=== PATIENT | male | born 1950 | race Caucasian/White ===

== ENCOUNTER 2017-08-30 09:51 | Inpatient (IN) ==
[2017-08-30] MEDS ORDERED: TEMAZEPAM 7.5 MG CAPSULE PO PRN (10:54)
[2017-08-30] MEDS ORDERED: ACETAMINOPHEN 325 MG TABLET PO PRN (10:54)
[2017-08-30] MEDS ORDERED: ALPRAZolam 0.25 MG TABLET PO PRN (10:54)
[2017-08-30] MEDS ORDERED: LOPERAMIDE 2 MG CAPSULE PO PRN ×2 (10:54)
[2017-08-30] MEDS ORDERED: chlorproMAZINE INJ 50 MG in SODIUM CHLORIDE 0.9% 100 ML IV PRN (10:54)
[2017-08-30] MEDS ORDERED: ALUMINUM/MAGNES/SIMETH MAX STR 30 ML UDCUP PO PRN (10:54)
[2017-08-30] MEDS ORDERED: PROMETHAZINE INJ 25 MG in SODIUM CHLORIDE 0.9% 50 ML IV PRN (10:54)
[2017-08-30] MEDS ORDERED: chlorproMAZINE INJ 25 MG in SODIUM CHLORIDE 0.9% 100 ML IV PRN (10:54)
[2017-08-30] MEDS ORDERED: traMADol 50 MG TABLET PO PRN (10:54)
[2017-08-30] MEDS ORDERED: MAGNESIUM HYDROXIDE SUSP 30 ML UDCUP PO PRN (10:54)
[2017-08-30] MEDS ORDERED: diphenhydrAMINE CAP 25 MG CAPSULE PO PRN (10:54)
[2017-08-30] MEDS ORDERED: LACTULOSE 20 GM/30 ML UDCUP PO PRN (10:54)
[2017-08-30] MEDS ORDERED: MYLANTA/LIDO VISC 2:1 300 ML BOTTLE SWISH/SWAL PRN (10:54)
[2017-08-30] MEDS ORDERED: guaiFENesin 200 MG/10 ML UDCUP PO PRN (10:54)
[2017-08-30] MEDS ORDERED: BENZTROPINE 2 MG/2 ML AMP IV PRN (10:54)
[2017-08-30] MEDS ORDERED: MYLANTA/LIDO VISC 2:1 300 ML BOTTLE SWISH/SPIT PRN (10:54)
[2017-08-30] MEDS ORDERED: ONDANSETRON 4 MG/2 ML VIAL IV PRN (10:54)
[2017-08-30] MEDS ORDERED: chlorproMAZINE 25 MG TABLET PO PRN (10:54)
[2017-08-30 11:24] LABS: Basophils # 0.2 10*3/uL (0.0-0.2); Basophils % 1.4 % (0.0-0.8); Hematocrit 38.7 VOL% (42.0-52.0); Hemoglobin 13.6 GM/DL (14.0-18.0); Immature Granulocytes % 6.2 %; Immature Granulocytes Absolute 0.66 #; Lymphocytes # 1.1 10*3/uL (1.4-4.0); Lymphocytes % 10.7 % (21.2-54.2); Mean Corpuscular HGB Conc 35.1 GM/DL (32-36); Mean Corpuscular Hemoglobin 35 PG (27-34); Mean Corpuscular Volume 98.2 FL (87-102); Mean Platelet Volume 9.1 FL (9.6-12.0); Monocytes # 0.8 10*3/uL (0.11-0.8); Monocytes % 7.3 % (1.7-12.7); Neutrophils % 74.4 % (38.7-73.9); Platelet Count 298 T/CUMM (130-400); Red Blood Count 3.94 MC/CUMM (3.8-5.5); Red Cell Distribution Width 12.9 % (9.3-17.3); White Blood Count 10.7 T/CUMM (4-12)
[2017-08-30 11:44] LABS: Band Neutrophils 5 % (0-10); Lymphocytes 13 % (20-55); Segmented Neutrophils 79 % (50-85); Total Cells Counted 100
[2017-08-30 11:45] LABS: Microcytosis Slight; Platelet Estimate Normal
[2017-08-30 11:53] LABS: Albumin 3.8 G/DL (3.4-5.0); Bilirubin,Total 0.7 MG/DL (0.2-1.0); Calcium 8.7 MG/DL (8.5-10.1); Osmolality,Calculated 274.8 MOS/KG (273-304); Potassium 4.4 MMOL/L (3.5-5.1); Total Protein 6.2 G/DL (6.4-8.3); Uric Acid 4.2 MG/DL (3.5-7.2)
[2017-08-30] MEDS: VANCOMYCIN INJ 1,000 MG in SODIUM CHLORIDE 0.9% 250 ML IV SCH (12:00)
[2017-08-30] MEDS ORDERED: LIDOCAINE 1%/EPI INJ 20 ML VIAL ONE (13:01)
[2017-08-30] MEDS ORDERED: BUPIVACAINE 0.25% 50 ML VIAL ONE (13:01)
[2017-08-30] MEDS ORDERED: fentaNYL 100 MCG/2 ML VIAL ONE (13:50)
[2017-08-30] MEDS ORDERED: MIDAZOLAM 2 MG/2 ML VIAL ONE (13:50)
[2017-08-30] MEDS ORDERED: PROPOFOL 200 MG/20 ML VIAL IV ONE (13:51)
[2017-08-30] MEDS: PIPERACILLIN/TAZOBACTAM 3,375 MG in SODIUM CHLORIDE 0.9% 100 ML IV SCH ×2 (14:45→20:28)
[2017-08-30 16:01] LABS: Apearance,Urine CLEAR (Clear); Bilirubin,Urine Negative (Negative); Blood, Urine Negative (Negative); Glucose,Urine (UA) Negative (Negative); Ketones,Urine Negative (Negative); Nitrite,Urine Negative (Negative); Protein,Urine Negative; Urine Color Yellow (Yellow); Urine Specific Gravity 1.006 (1.001-1.035); Urine Urobilinogen < 2.0 EU/DL (0.2-1.0); WBC,Urine <1 /HPF (0-6)
[2017-08-30] MEDS ORDERED: POLYETHYLENE GLYCOL POWDER 17 GM PACK PO SCH (17:30)
[2017-08-30] MEDS: POLYETHYLENE GLYCOL POWDER 17 GM PACK PO SCH (20:25)
[2017-08-30] MEDS ORDERED: ZALEPLON 5 MG CAPSULE PO PRN (20:40)
[2017-08-30] MEDS ORDERED: NAPROXEN 500 MG TABLET PO PRN (20:41)
[2017-08-30] MEDS ORDERED: amLODIPine 10 MG TABLET PO SCH (21:00)
[2017-08-30] MEDS ORDERED: GABAPENTIN 100 MG CAPSULE PO SCH (21:00)
[2017-08-30] MEDS ORDERED: MAGNESIUM CHLORIDE 64 MG TABLET PO SCH (21:00)
[2017-08-30] MEDS ORDERED: PANTOPRAZOLE 40 MG TABLET PO SCH (21:00)
[2017-08-30] MEDS: CARVEDILOL 25 MG TABLET PO SCH (21:02)
[2017-08-31] MEDS: ONDANSETRON 4 MG TABLET PO SCH ×3 (01:05→11:34)
[2017-08-31] MEDS: VANCOMYCIN INJ 1,000 MG in SODIUM CHLORIDE 0.9% 250 ML IV SCH ×2 (01:16→13:24)
[2017-08-31] MEDS: PIPERACILLIN/TAZOBACTAM 3,375 MG in SODIUM CHLORIDE 0.9% 100 ML IV SCH ×2 (05:24→16:05)
[2017-08-31] MEDS ORDERED: LEVOTHYROXINE 25 MCG TABLET PO SCH (07:00)
[2017-08-31] MEDS: CARVEDILOL 25 MG TABLET PO SCH (08:50)
[2017-08-31] MEDS: POLYETHYLENE GLYCOL POWDER 17 GM PACK PO SCH (08:55)
[2017-08-31] MEDS ORDERED: ASPIRIN EC 81 MG TABLET PO SCH (09:00)
[2017-08-31] MEDS ORDERED: ESCITALOPRAM 10 MG TABLET PO SCH (09:00)
[2017-08-31] MEDS ORDERED: ALLOPURINOL 300 MG TABLET PO SCH (09:00)
[2017-08-31] MEDS ORDERED: IRBESARTAN PO SCH (09:15)
[2017-08-31] MEDS ORDERED: HYDROCHLOROTHIAZIDE PO SCH (09:15)
[2017-08-31] MEDS ORDERED: [UNRECOGNIZED DRUG - OTHER] PO SCH (09:15)
[2017-08-31] MEDS ORDERED: OMEGA 3 ACID ETHYL ESTERS 1 GM CAPSULE PO SCH (11:00)
[2017-08-31] MEDS: hydroCHLOROthiazide 12.5 MG CAPSULE PO SCH ×2 (11:17→11:25)
[2017-08-31] MEDS: IRBESARTAN 150 MG TABLET PO SCH ×2 (11:17→11:25)
[2017-08-31 11:47] VITALS: BP 133/72
[2017-08-31] MEDS ORDERED: NON-FORMULARY MEDICATION (Icosapent Ethyl [Vascepa] 1 GM) PO SCH (21:00)
== END 2017-08-31 16:07 | disposition home or self-care (01) | DRG 315 ==
LOC: N.4E 10:06
PROVIDERS: ADMIT Specialist; ATTEND Specialist

== ENCOUNTER 2020-05-22 13:16 | Inpatient (IN) ==
[2020-05-22 13:41] LABS: Basophils # 0.1 10*3/uL (0.0-0.2); Basophils % 0.3 % (0.0-0.8); Hematocrit 39.5 VOL% (42.0-52.0); Hemoglobin 14.1 GM/DL (14.0-18.0); Immature Granulocytes % 3.5 %; Immature Granulocytes Absolute 0.62 #; Lymphocytes # 0.6 10*3/uL (1.4-4.0); Lymphocytes % 3.7 % (21.2-54.2); Mean Corpuscular HGB Conc 35.7 GM/DL (32-36); Mean Corpuscular Volume 95.2 FL (87-102); Mean Platelet Volume 8.8 FL (9.6-12.0); Monocytes % 3.4 % (1.7-12.7); Neutrophils % 89.1 % (38.7-73.9); Platelet Count 324 T/CUMM (130-400); Red Blood Count 4.15 MC/CUMM (3.8-5.5); Red Cell Distribution Width 13.2 % (9.3-17.3); White Blood Count 17.5 T/CUMM (4-12)
[2020-05-22] MEDS ORDERED: PIPERACILLIN/TAZOBACTAM 3,375 MG in SODIUM CHLORIDE 0.9% 100 ML IV STA (13:48)
[2020-05-22] MEDS ORDERED: VANCOMYCIN INJ 1,250 MG in SODIUM CHLORIDE 0.9% 250 ML IV STA (13:48)
[2020-05-22] MEDS ORDERED: FUROSEMIDE 40 MG/4 ML VIAL IV STA (13:48)
[2020-05-22 13:51] LABS: INR 1.1; PT Patient Result 12.1 SECS (9.8-11.9)
[2020-05-22 14:02] LABS: Lymphocytes 4 % (20-55); Platelet Estimate Adequate; Segmented Neutrophils 91 % (50-85); Total Cells Counted 100
[2020-05-22 14:09] LABS: Albumin 2.7 G/DL (3.4-5.0); Bilirubin,Total 0.6 MG/DL (0.2-1.0); Calcium 8.5 MG/DL (8.5-10.1); Osmolality,Calculated 268.5 MOS/KG (273-304); Total Protein 6.6 G/DL (6.4-8.3)
[2020-05-22 14:23] LABS: Ferritin 1441.8 ng/ml (26-388)
[2020-05-22] MEDS ORDERED: ONDANSETRON 4 MG/2 ML VIAL IV PRN (14:34)
[2020-05-22] MEDS ORDERED: ALBUTEROL 2.5 MG/3 ML NEB RESP TX PRN (14:37)
[2020-05-22] MEDS ORDERED: SODIUM CHLORIDE 0.45% 1,000 ML IV SCH (15:00)
[2020-05-22] MEDS ORDERED: NAPROXEN 250 MG TABLET PO PRN (15:47)
[2020-05-22] MEDS ORDERED: ALPRAZolam 0.5 MG TABLET PO PRN (15:47)
[2020-05-22] MEDS ORDERED: BENZONATATE 100 MG CAPSULE PO PRN (15:47)
[2020-05-22] MEDS: methylPREDNISolone SOD SUC 40 MG/1 ML VIAL IV SCH ×2 (16:37→22:01)
[2020-05-22] MEDS: VANCOMYCIN INJ 1,250 MG in SODIUM CHLORIDE 0.9% 250 ML IV SCH (17:50)
[2020-05-22] MEDS: OMEGA 3 ACID ETHYL ESTERS 1 GM CAPSULE PO SCH (20:43)
[2020-05-22] MEDS: GABAPENTIN 100 MG CAPSULE PO SCH (20:44)
[2020-05-22] MEDS: DOCUSATE SODIUM 100 MG CAPSULE PO SCH (20:44)
[2020-05-22] MEDS: PIPERACILLIN/TAZOBACTAM 3,375 MG in SODIUM CHLORIDE 0.9% 100 ML IV SCH (21:29)
[2020-05-23] MEDS: VANCOMYCIN INJ 1,250 MG in SODIUM CHLORIDE 0.9% 250 ML IV SCH ×2 (04:37→18:10)
[2020-05-23] MEDS: PIPERACILLIN/TAZOBACTAM 3,375 MG in SODIUM CHLORIDE 0.9% 100 ML IV SCH ×3 (05:42→21:24)
[2020-05-23] MEDS: LEVOTHYROXINE 25 MCG TABLET PO SCH (06:23)
[2020-05-23] MEDS: methylPREDNISolone SOD SUC 40 MG/1 ML VIAL IV SCH ×3 (06:23→22:33)
[2020-05-23] MEDS: OMEGA 3 ACID ETHYL ESTERS 1 GM CAPSULE PO SCH ×2 (09:13→20:36)
[2020-05-23] MEDS: NEBIVOLOL 10 MG TABLET PO SCH (09:13)
[2020-05-23] MEDS: amLODIPine 10 MG TABLET PO SCH (09:13)
[2020-05-23] MEDS: DOCUSATE SODIUM 100 MG CAPSULE PO SCH ×2 (09:13→20:36)
[2020-05-23] MEDS: MAGNESIUM CHLORIDE 64 MG TABLET PO SCH (09:13)
[2020-05-23] MEDS: PANTOPRAZOLE 40 MG TABLET PO SCH (09:13)
[2020-05-23] MEDS: LOSARTAN 50 MG TABLET PO SCH (09:13)
[2020-05-23] MEDS: MULTIVITAMIN (CENTRUM) TABLET PO SCH (09:14)
[2020-05-23] MEDS: NON-FORMULARY MEDICATION (Aluminum Hydrox-Magnesium Carb [Gaviscon Extra Strength] 160-105 PO SCH ×2 (09:14→20:44)
[2020-05-23] MEDS: hydroCHLOROthiazide 12.5 MG CAPSULE PO SCH (09:14)
[2020-05-23] MEDS: ASPIRIN CHEW 81 MG TABLET PO SCH (09:14)
[2020-05-23] MEDS: ACETAMINOPHEN 325 MG TABLET PO PRN (15:35)
[2020-05-23] MEDS: GABAPENTIN 100 MG CAPSULE PO SCH (20:37)
[2020-05-23] MEDS: CETIRIZINE 10 MG TABLET PO PRN (20:37)
[2020-05-23] MEDS: APIXABAN 5 MG TABLET PO SCH (20:37)
[2020-05-24 05:58] LABS: Calcium 8.4 MG/DL (8.5-10.1); Osmolality,Calculated 276.2 MOS/KG (273-304)
[2020-05-24] MEDS: VANCOMYCIN INJ 1,250 MG in SODIUM CHLORIDE 0.9% 250 ML IV SCH ×3 (06:33→23:58)
[2020-05-24] MEDS: PIPERACILLIN/TAZOBACTAM 3,375 MG in SODIUM CHLORIDE 0.9% 100 ML IV SCH ×3 (06:33→20:51)
[2020-05-24] MEDS: LEVOTHYROXINE 25 MCG TABLET PO SCH (06:33)
[2020-05-24] MEDS: methylPREDNISolone SOD SUC 40 MG/1 ML VIAL IV SCH ×3 (06:35→17:35)
[2020-05-24] MEDS: LOSARTAN 50 MG TABLET PO SCH (09:40)
[2020-05-24] MEDS: DOCUSATE SODIUM 100 MG CAPSULE PO SCH ×2 (09:40→20:49)
[2020-05-24] MEDS: NEBIVOLOL 10 MG TABLET PO SCH (09:40)
[2020-05-24] MEDS: hydroCHLOROthiazide 12.5 MG CAPSULE PO SCH (09:40)
[2020-05-24] MEDS: amLODIPine 10 MG TABLET PO SCH (09:41)
[2020-05-24] MEDS: OMEGA 3 ACID ETHYL ESTERS 1 GM CAPSULE PO SCH ×2 (09:41→20:49)
[2020-05-24] MEDS: MULTIVITAMIN (CENTRUM) TABLET PO SCH (09:41)
[2020-05-24] MEDS: PANTOPRAZOLE 40 MG TABLET PO SCH (09:41)
[2020-05-24] MEDS: APIXABAN 5 MG TABLET PO SCH ×2 (09:41→20:49)
[2020-05-24] MEDS: ASPIRIN CHEW 81 MG TABLET PO SCH (09:41)
[2020-05-24] MEDS: MAGNESIUM CHLORIDE 64 MG TABLET PO SCH (09:41)
[2020-05-24] MEDS: NON-FORMULARY MEDICATION (Aluminum Hydrox-Magnesium Carb [Gaviscon Extra Strength] 160-105 PO SCH ×2 (10:02→20:51)
[2020-05-24] MEDS: GABAPENTIN 100 MG CAPSULE PO SCH (20:51)
[2020-05-25] MEDS ORDERED: ALBUTEROL 2.5 MG/3 ML NEB RESP TX ONE (00:16)
[2020-05-25] MEDS ORDERED: ALBUTEROL 2.5 MG/3 ML NEB RESP TX PRN (00:17)
[2020-05-25 00:31] LABS: ABG Base Excess -1.3 MMOL/L (-2.5-2.5); ABG HCO3 23.1 MMOL/L (20-26); ABG Oxygen Saturation 86.4 % (95-100); ABG PCO2 31.8 MM HG (35-48); ABG PH 7.445 (7.35-7.45); ABG PO2 53.4 MM HG (80-95); ABG TCO2 18.9 MMOL/L (23-27); Allen Test Positive; Pt O2 Delivery Device Other
[2020-05-25] MEDS ORDERED: MORPHINE 4 MG/1 ML VIAL IV PRN (02:20)
[2020-05-25] MEDS: methylPREDNISolone SOD SUC 40 MG/1 ML VIAL IV SCH ×3 (02:42→17:40)
[2020-05-25 03:32] LABS: ABG Base Excess -0.2 MMOL/L (-2.5-2.5); ABG HCO3 24.1 MMOL/L (20-26); ABG Oxygen Saturation 92.9 % (95-100); ABG PO2 66.8 MM HG (80-95); ABG TCO2 19.8 MMOL/L (23-27)
[2020-05-25] MEDS: PIPERACILLIN/TAZOBACTAM 3,375 MG in SODIUM CHLORIDE 0.9% 100 ML IV SCH ×3 (04:07→20:25)
[2020-05-25] MEDS: LEVOTHYROXINE 25 MCG TABLET PO SCH ×2 (06:39→09:13)
[2020-05-25] MEDS ORDERED: LEVOTHYROXINE 100 MCG VIAL IV ONE (06:39)
[2020-05-25] MEDS: hydroCHLOROthiazide 12.5 MG CAPSULE PO SCH (09:14)
[2020-05-25] MEDS: OMEGA 3 ACID ETHYL ESTERS 1 GM CAPSULE PO SCH ×2 (09:14→20:25)
[2020-05-25] MEDS: PANTOPRAZOLE 40 MG TABLET PO SCH (09:30)
[2020-05-25] MEDS: ALPRAZolam 0.25 MG TABLET PO PRN ×2 (09:30→16:35)
[2020-05-25] MEDS: ASPIRIN CHEW 81 MG TABLET PO SCH (09:30)
[2020-05-25] MEDS: NEBIVOLOL 10 MG TABLET PO SCH (09:30)
[2020-05-25] MEDS: DOCUSATE SODIUM 100 MG CAPSULE PO SCH ×2 (09:30→20:25)
[2020-05-25] MEDS: APIXABAN 5 MG TABLET PO SCH ×2 (09:31→20:25)
[2020-05-25] MEDS: MULTIVITAMIN (CENTRUM) TABLET PO SCH (09:31)
[2020-05-25] MEDS: amLODIPine 10 MG TABLET PO SCH ×2 (09:31→21:00)
[2020-05-25] MEDS: MAGNESIUM CHLORIDE 64 MG TABLET PO SCH (09:31)
[2020-05-25] MEDS: CETIRIZINE 10 MG TABLET PO PRN (09:31)
[2020-05-25] MEDS: BACITRACIN OINT 0.9 GM PACK TOP SCH ×3 (09:33→20:25)
[2020-05-25] MEDS: LOSARTAN 50 MG TABLET PO SCH (09:33)
[2020-05-25] MEDS: NON-FORMULARY MEDICATION (Aluminum Hydrox-Magnesium Carb [Gaviscon Extra Strength] 160-105 PO SCH ×2 (09:59→22:49)
[2020-05-25] MEDS: ALBUTEROL 2.5 MG/3 ML NEB RESP TX SCH ×4 (12:02→23:30)
[2020-05-25] MEDS: VANCOMYCIN INJ 1,250 MG in SODIUM CHLORIDE 0.9% 250 ML IV SCH (12:15)
[2020-05-25] MEDS ORDERED: ALPRAZolam 0.5 MG TABLET PO PRN (18:00)
[2020-05-25] MEDS: GABAPENTIN 100 MG CAPSULE PO SCH (20:25)
[2020-05-26] MEDS: VANCOMYCIN INJ 1,250 MG in SODIUM CHLORIDE 0.9% 250 ML IV SCH ×2 (00:45→18:31)
[2020-05-26] MEDS: methylPREDNISolone SOD SUC 40 MG/1 ML VIAL IV SCH ×3 (02:06→19:29)
[2020-05-26] MEDS: ALBUTEROL 2.5 MG/3 ML NEB RESP TX SCH ×5 (03:10→19:26)
[2020-05-26 05:00] LABS: Basophils # 0.2 10*3/uL (0.0-0.2); Basophils % 0.6 % (0.0-0.8); Hematocrit 38.4 VOL% (42.0-52.0); Hemoglobin 13.3 GM/DL (14.0-18.0); Immature Granulocytes % 6.8 %; Immature Granulocytes Absolute 1.77 #; Lymphocytes # 0.5 10*3/uL (1.4-4.0); Lymphocytes % 1.8 % (21.2-54.2); Mean Corpuscular HGB Conc 34.6 GM/DL (32-36); Mean Corpuscular Volume 95.3 FL (87-102); Mean Platelet Volume 9.3 FL (9.6-12.0); Monocytes % 3.4 % (1.7-12.7); Neutrophils % 87.4 % (38.7-73.9); Platelet Count 240 T/CUMM (130-400); Red Blood Count 4.03 MC/CUMM (3.8-5.5); Red Cell Distribution Width 13.4 % (9.3-17.3); White Blood Count 25.9 T/CUMM (4-12)
[2020-05-26 05:22] LABS: Albumin 2.2 G/DL (3.4-5.0); Bilirubin,Total 1.2 MG/DL (0.2-1.0); Calcium 8.2 MG/DL (8.5-10.1); Osmolality,Calculated 276.4 MOS/KG (273-304); Total Protein 5.9 G/DL (6.4-8.3)
[2020-05-26 05:32] LABS: Lymphocytes 5 % (20-55); Platelet Estimate Adequate; Segmented Neutrophils 89 % (50-85); Total Cells Counted 100
[2020-05-26 05:33] LABS: Microcytosis Slight; Ovalocytes Slight
[2020-05-26] MEDS: PIPERACILLIN/TAZOBACTAM 3,375 MG in SODIUM CHLORIDE 0.9% 100 ML IV SCH ×3 (06:20→22:45)
[2020-05-26] MEDS: LEVOTHYROXINE 25 MCG TABLET PO SCH (06:55)
[2020-05-26] MEDS ORDERED: FUROSEMIDE 20 MG/2 ML VIAL IV ONE (08:37)
[2020-05-26] MEDS: IMMUNE GLOBULIN 10% 20 GM, IMMUNE GLOBULIN 10% 10 GM in PREMIX 1 EACH IV SCH (11:09)
[2020-05-26] MEDS ORDERED: SUCCINYLCHOLINE 200 MG/10 ML VIAL ONE (12:01)
[2020-05-26] MEDS ORDERED: ETOMIDATE 20 MG/10 ML VIAL IV ONE ×2 (12:01→12:10)
[2020-05-26] MEDS ORDERED: SUCCINYLCHOLINE 200 MG/10 ML VIAL IV ONE (12:11)
[2020-05-26] MEDS ORDERED: LORazepam 2 MG/1 ML VIAL IV ONE ×2 (12:31→16:36)
[2020-05-26] MEDS: fentaNYL INJ 1,250 MCG in SODIUM CHLORIDE 0.9% 225 ML IV PRN ×2 (12:52→18:00)
[2020-05-26] MEDS: NEBIVOLOL 10 MG TABLET PO SCH (13:09)
[2020-05-26] MEDS: NON-FORMULARY MEDICATION (Aluminum Hydrox-Magnesium Carb [Gaviscon Extra Strength] 160-105 PO SCH ×2 (13:09→21:04)
[2020-05-26] MEDS: BACITRACIN OINT 0.9 GM PACK TOP SCH ×3 (13:09→20:55)
[2020-05-26] MEDS: amLODIPine 10 MG TABLET PO SCH ×2 (13:11→20:56)
[2020-05-26] MEDS: OMEGA 3 ACID ETHYL ESTERS 1 GM CAPSULE PO SCH ×2 (13:11→20:56)
[2020-05-26] MEDS: DOCUSATE SODIUM 100 MG CAPSULE PO SCH ×2 (13:11→20:55)
[2020-05-26] MEDS: LOSARTAN 50 MG TABLET PO SCH (13:11)
[2020-05-26] MEDS: MAGNESIUM CHLORIDE 64 MG TABLET PO SCH (13:11)
[2020-05-26] MEDS: hydroCHLOROthiazide 12.5 MG CAPSULE PO SCH (13:11)
[2020-05-26] MEDS: MULTIVITAMIN (CENTRUM) TABLET PO SCH (13:11)
[2020-05-26 13:19] LABS: Bilirubin,Urine Negative (Negative); Blood, Urine Negative (Negative); Glucose,Urine (UA) Negative (Negative); Ketones,Urine Negative (Negative); Mucus,Urine Occasional /LPF (Occasional); Nitrite,Urine Negative (Negative); Protein,Urine 30 MG/DL; RBC,Urine 1 /HPF (0-4); Squamous Epithelial Cell,Urine Occasional /HPF (0-10); Urine Appearance CLEAR (Clear); Urine Color Yellow (Yellow); Urine Specific Gravity 1.025 (1.001-1.035); Urine Urobilinogen < 2.0 EU/DL (0.2-1.0); WBC,Urine 3 /HPF (0-6)
[2020-05-26 13:24] LABS: ABG Base Excess -2.5 MMOL/L (-2.5-2.5); ABG HCO3 22.3 MMOL/L (20-26); ABG Oxygen Saturation 96.5 % (95-100); ABG PCO2 43.4 MM HG (35-48); ABG PO2 94.1 MM HG (80-95); ABG TCO2 20.6 MMOL/L (23-27); Allen Test Positive; Pt O2 Delivery Device Ventilator
[2020-05-26 14:16] LABS: Mycoplasma pneumoniae Ab Inter SEE COMMENTS; Mycoplasma pneumoniae Ab, IgG Positive (Negative); Mycoplasma pneumoniae Ab, IgM Negative (Negative)
[2020-05-26] MEDS ORDERED: MIDAZOLAM 10 MG/2 ML VIAL ONE (14:31)
[2020-05-26] MEDS ORDERED: MIDAZOLAM 2 MG/2 ML VIAL IV ONE (14:39)
[2020-05-26] MEDS ORDERED: MIDAZOLAM 100 MG in SODIUM CHLORIDE 0.9% 80 ML IV SCH (15:00)
[2020-05-26] MEDS: APIXABAN 5 MG TABLET PO SCH ×2 (15:00→20:55)
[2020-05-26] MEDS: PANTOPRAZOLE 40 MG TABLET PO SCH (15:00)
[2020-05-26] MEDS: ASPIRIN CHEW 81 MG TABLET PO SCH (15:00)
[2020-05-26] MEDS: MIDAZOLAM 100 MG in SODIUM CHLORIDE 0.9% 80 ML IV PRN (15:30)
[2020-05-26] MEDS: CISATRACURIUM 200 MG in SODIUM CHLORIDE 0.9% 180 ML IV PRN ×2 (16:11→21:04)
[2020-05-26] MEDS ORDERED: MORPHINE 4 MG/1 ML VIAL IV ONE (16:36)
[2020-05-26 16:44] LABS: ABG Base Excess -2.5 MMOL/L (-2.5-2.5); ABG HCO3 22.1 MMOL/L (20-26); ABG Oxygen Saturation 87.3 % (95-100); ABG PCO2 41.4 MM HG (35-48); ABG PH 7.353 (7.35-7.45); ABG PO2 58.2 MM HG (80-95); Allen Test Positive; Pt O2 Delivery Device Ventilator
[2020-05-26] MEDS ORDERED: PHENYLEPHRINE DRIP 40 MG/250 ML PREMIX IV ONE (18:31)
[2020-05-26] MEDS: PHENYLEPHRINE DRIP 40 MG/250 ML PREMIX IV PRN (18:35)
[2020-05-26] MEDS ORDERED: fentaNYL INJ 2,500 MCG in SODIUM CHLORIDE 0.9% 75 ML IV PRN (19:35)
[2020-05-26] MEDS: fentaNYL INJ 2,500 MCG in SODIUM CHLORIDE 0.9% 75 ML IV PRN ×2 (19:49→22:56)
[2020-05-26] MEDS: GABAPENTIN 100 MG CAPSULE PO SCH (20:55)
[2020-05-27] MEDS: ALBUTEROL 2.5 MG/3 ML NEB RESP TX SCH ×7 (00:08→23:23)
[2020-05-27] MEDS: MIDAZOLAM 100 MG in SODIUM CHLORIDE 0.9% 80 ML IV PRN (01:11)
[2020-05-27] MEDS: PHENYLEPHRINE DRIP 40 MG/250 ML PREMIX IV PRN (02:28)
[2020-05-27] MEDS: fentaNYL INJ 2,500 MCG in SODIUM CHLORIDE 0.9% 75 ML IV PRN (02:28)
[2020-05-27] MEDS: methylPREDNISolone SOD SUC 40 MG/1 ML VIAL IV SCH ×3 (02:29→18:54)
[2020-05-27 04:00] LABS: Basophils % 0.1 % (0.0-0.8); Hematocrit 36.3 VOL% (42.0-52.0); Hemoglobin 12.5 GM/DL (14.0-18.0); Immature Granulocytes Absolute 4.34 #; Lymphocytes # 0.5 10*3/uL (1.4-4.0); Lymphocytes % 1.4 % (21.2-54.2); Mean Corpuscular HGB Conc 34.4 GM/DL (32-36); Mean Corpuscular Volume 98.1 FL (87-102); Mean Platelet Volume 9.3 FL (9.6-12.0); Monocytes % 2.9 % (1.7-12.7); Neutrophils % 82.6 % (38.7-73.9); Platelet Count 242 T/CUMM (130-400); Red Cell Distribution Width 13.7 % (9.3-17.3); White Blood Count 33.4 T/CUMM (4-12)
[2020-05-27 04:11] LABS: INR 1.2
[2020-05-27 04:22] LABS: Band Neutrophils 3 % (0-10); Bilirubin,Total 0.9 MG/DL (0.2-1.0); Calcium 7.4 MG/DL (8.5-10.1); Lymphocytes 1 % (20-55); Microcytosis Slight; Osmolality,Calculated 295.3 MOS/KG (273-304); Platelet Estimate Adequate; Segmented Neutrophils 94 % (50-85); Total Cells Counted 100
[2020-05-27 04:50] LABS: ABG Base Excess -2.9 MMOL/L (-2.5-2.5); ABG HCO3 23.7 MMOL/L (20-26); ABG Oxygen Saturation 95.5 % (95-100); ABG PCO2 48.8 MM HG (35-48); ABG PH 7.305 (7.35-7.45); ABG PO2 86.4 MM HG (80-95); ABG TCO2 25.2 MMOL/L (23-27); Allen Test Positive; Pt O2 Delivery Device Ventilator
[2020-05-27] MEDS: VANCOMYCIN INJ 1,250 MG in SODIUM CHLORIDE 0.9% 250 ML IV SCH ×2 (06:10→19:25)
[2020-05-27] MEDS: PIPERACILLIN/TAZOBACTAM 3,375 MG in SODIUM CHLORIDE 0.9% 100 ML IV SCH ×3 (06:10→22:43)
[2020-05-27] MEDS: LEVOTHYROXINE 25 MCG TABLET PO SCH (06:15)
[2020-05-27] MEDS: MAGNESIUM CHLORIDE 64 MG TABLET PO SCH (09:22)
[2020-05-27] MEDS: IMMUNE GLOBULIN 10% 20 GM, IMMUNE GLOBULIN 10% 10 GM in PREMIX 1 EACH IV SCH (09:23)
[2020-05-27] MEDS: amLODIPine 10 MG TABLET PO SCH ×2 (09:24→20:11)
[2020-05-27] MEDS: NON-FORMULARY MEDICATION (Aluminum Hydrox-Magnesium Carb [Gaviscon Extra Strength] 160-105 PO SCH ×2 (09:27→20:10)
[2020-05-27] MEDS: ASPIRIN CHEW 81 MG TABLET PO SCH (09:27)
[2020-05-27] MEDS: MULTIVITAMIN (CENTRUM) TABLET PO SCH (09:28)
[2020-05-27] MEDS: DOCUSATE SODIUM 100 MG CAPSULE PO SCH ×2 (09:28→20:10)
[2020-05-27] MEDS: NEBIVOLOL 10 MG TABLET PO SCH (09:28)
[2020-05-27] MEDS: BACITRACIN OINT 0.9 GM PACK TOP SCH ×3 (09:28→20:21)
[2020-05-27] MEDS: hydroCHLOROthiazide 12.5 MG CAPSULE PO SCH (09:29)
[2020-05-27] MEDS: APIXABAN 5 MG TABLET PO SCH ×2 (09:29→20:21)
[2020-05-27] MEDS: LOSARTAN 50 MG TABLET PO SCH (10:32)
[2020-05-27] MEDS: PANTOPRAZOLE 40 MG VIAL IV SCH (10:33)
[2020-05-27] MEDS: OMEGA 3 ACID ETHYL ESTERS 1 GM CAPSULE PO SCH ×2 (10:33→20:22)
[2020-05-27] MEDS: SULFAMETH/TRIMETH INJ 160 MG in DEXTROSE 5% 250 ML IV SCH ×3 (11:15→22:42)
[2020-05-27] MEDS ORDERED: GLUCAGON 1 MG VIAL IM PRN (16:12)
[2020-05-27] MEDS ORDERED: DEXTROSE 50% 25 GM/50 ML VIAL IV PRN (16:12)
[2020-05-27] MEDS: INSULIN REGULAR 100 UNIT/ML SUBCUT SCH (18:48)
[2020-05-27] MEDS: GABAPENTIN 100 MG CAPSULE PO SCH (20:21)
[2020-05-28] MEDS: INSULIN REGULAR 100 UNIT/ML SUBCUT SCH ×4 (00:10→17:40)
[2020-05-28] MEDS: fentaNYL INJ 2,500 MCG in SODIUM CHLORIDE 0.9% 75 ML IV PRN ×3 (02:06→22:28)
[2020-05-28] MEDS: methylPREDNISolone SOD SUC 40 MG/1 ML VIAL IV SCH ×3 (02:52→17:42)
[2020-05-28 03:17] LABS: ABG Base Excess -2.9 MMOL/L (-2.5-2.5); ABG HCO3 22.8 MMOL/L (20-26); ABG Oxygen Saturation 96.3 % (95-100); ABG PCO2 43.5 MM HG (35-48); ABG PH 7.338 (7.35-7.45); ABG PO2 89.8 MM HG (80-95); ABG TCO2 24.2 MMOL/L (23-27)
[2020-05-28] MEDS: ALBUTEROL 2.5 MG/3 ML NEB RESP TX SCH ×6 (04:13→23:41)
[2020-05-28 04:14] LABS: Basophils # 0.1 10*3/uL (0.0-0.2); Basophils % 0.3 % (0.0-0.8); Hematocrit 35.8 VOL% (42.0-52.0); Hemoglobin 11.8 GM/DL (14.0-18.0); Immature Granulocytes % 5.6 %; Immature Granulocytes Absolute 1.12 #; Lymphocytes # 0.1 10*3/uL (1.4-4.0); Lymphocytes % 0.6 % (21.2-54.2); Mean Corpuscular Volume 100.8 FL (87-102); Mean Platelet Volume 9.6 FL (9.6-12.0); Monocytes % 2.4 % (1.7-12.7); NRBC # 0.02 10*3/uL; Neutrophils % 91.1 % (38.7-73.9); Platelet Count 186 T/CUMM (130-400); Red Blood Count 3.55 MC/CUMM (3.8-5.5); Red Cell Distribution Width 13.9 % (9.3-17.3); White Blood Count 19.8 T/CUMM (4-12)
[2020-05-28] MEDS: SULFAMETH/TRIMETH INJ 160 MG in DEXTROSE 5% 250 ML IV SCH ×4 (04:33→22:27)
[2020-05-28 04:35] LABS: Albumin 1.8 G/DL (3.4-5.0); Bilirubin,Total 0.9 MG/DL (0.2-1.0); Calcium 7.3 MG/DL (8.5-10.1); Osmolality,Calculated 301.3 MOS/KG (273-304); Total Protein 5.6 G/DL (6.4-8.3)
[2020-05-28 04:41] LABS: Lymphocytes 2 % (20-55); Microcytosis Slight; Platelet Estimate Adequate; Segmented Neutrophils 92 % (50-85); Total Cells Counted 100
[2020-05-28] MEDS: LEVOTHYROXINE 25 MCG TABLET PO SCH (06:00)
[2020-05-28] MEDS: PIPERACILLIN/TAZOBACTAM 3,375 MG in SODIUM CHLORIDE 0.9% 100 ML IV SCH ×3 (06:00→22:58)
[2020-05-28] MEDS: NEBIVOLOL 10 MG TABLET PO SCH (08:09)
[2020-05-28] MEDS: APIXABAN 5 MG TABLET PO SCH ×2 (08:09→21:06)
[2020-05-28] MEDS: ASPIRIN CHEW 81 MG TABLET PO SCH (08:09)
[2020-05-28] MEDS: hydroCHLOROthiazide 12.5 MG CAPSULE PO SCH (08:09)
[2020-05-28] MEDS: MAGNESIUM CHLORIDE 64 MG TABLET PO SCH (08:09)
[2020-05-28] MEDS: BACITRACIN OINT 0.9 GM PACK TOP SCH ×3 (08:09→21:06)
[2020-05-28] MEDS: MULTIVITAMIN (CENTRUM) TABLET PO SCH (08:10)
[2020-05-28] MEDS: NON-FORMULARY MEDICATION (Aluminum Hydrox-Magnesium Carb [Gaviscon Extra Strength] 160-105 PO SCH ×2 (08:10→21:01)
[2020-05-28] MEDS: OMEGA 3 ACID ETHYL ESTERS 1 GM CAPSULE PO SCH (08:11)
[2020-05-28] MEDS: DOCUSATE SODIUM 100 MG CAPSULE PO SCH ×2 (08:11→21:01)
[2020-05-28] MEDS: VANCOMYCIN INJ 1,250 MG in SODIUM CHLORIDE 0.9% 250 ML IV SCH (08:12)
[2020-05-28] MEDS ORDERED: SODIUM CHLORIDE 0.45% 500 ML IV ONE (09:14)
[2020-05-28] MEDS: IMMUNE GLOBULIN 10% 20 GM, IMMUNE GLOBULIN 10% 10 GM in PREMIX 1 EACH IV SCH (09:48)
[2020-05-28] MEDS: PANTOPRAZOLE 40 MG VIAL IV SCH (09:50)
[2020-05-28] MEDS ORDERED: VANCOMYCIN INJ 1,250 MG in SODIUM CHLORIDE 0.9% 250 ML IV SCH (18:00)
[2020-05-28] MEDS: GABAPENTIN 100 MG CAPSULE PO SCH (21:06)
[2020-05-29] MEDS: INSULIN REGULAR 100 UNIT/ML SUBCUT SCH ×5 (00:08→23:35)
[2020-05-29] MEDS: methylPREDNISolone SOD SUC 40 MG/1 ML VIAL IV SCH ×3 (02:41→17:53)
[2020-05-29 03:55] LABS: ABG Base Excess -3.7 MMOL/L (-2.5-2.5); ABG HCO3 21.3 MMOL/L (20-26); ABG Oxygen Saturation 95.7 % (95-100); ABG PCO2 57.6 MM HG (35-48); ABG PH 7.239 (7.35-7.45); ABG PO2 88.1 MM HG (80-95); ABG TCO2 22.6 MMOL/L (23-27); Allen Test Positive; Pt O2 Delivery Device Ventilator
[2020-05-29] MEDS: ALBUTEROL 2.5 MG/3 ML NEB RESP TX SCH ×6 (04:02→23:00)
[2020-05-29 04:28] LABS: Basophils # 0.1 10*3/uL (0.0-0.2); Basophils % 0.3 % (0.0-0.8); Hematocrit 33.1 VOL% (42.0-52.0); Immature Granulocytes % 4.7 %; Immature Granulocytes Absolute 1.01 #; Lymphocytes # 0.2 10*3/uL (1.4-4.0); Lymphocytes % 0.7 % (21.2-54.2); Mean Corpuscular HGB Conc 33.2 GM/DL (32-36); Mean Corpuscular Volume 101.8 FL (87-102); Mean Platelet Volume 10.2 FL (9.6-12.0); Monocytes % 1.2 % (1.7-12.7); Neutrophils % 93.1 % (38.7-73.9); Platelet Count 186 T/CUMM (130-400); Red Blood Count 3.25 MC/CUMM (3.8-5.5); Red Cell Distribution Width 14.3 % (9.3-17.3); White Blood Count 21.3 T/CUMM (4-12)
[2020-05-29] MEDS: SULFAMETH/TRIMETH INJ 160 MG in DEXTROSE 5% 250 ML IV SCH (04:51)
[2020-05-29 05:15] LABS: Albumin 1.6 G/DL (3.4-5.0); Bilirubin,Total 0.4 MG/DL (0.2-1.0); Calcium 7.1 MG/DL (8.5-10.1); Osmolality,Calculated 303.7 MOS/KG (273-304); Total Protein 6.1 G/DL (6.4-8.3)
[2020-05-29] MEDS: PIPERACILLIN/TAZOBACTAM 3,375 MG in SODIUM CHLORIDE 0.9% 100 ML IV SCH ×3 (06:12→22:16)
[2020-05-29] MEDS: LEVOTHYROXINE 25 MCG TABLET PO SCH (06:12)
[2020-05-29] MEDS ORDERED: SODIUM CHLORIDE 0.9% 1,000 ML IV ONE (07:13)
[2020-05-29 07:42] LABS: Band Neutrophils 1 % (0-10); Lymphocytes 4 % (20-55); Platelet Estimate Adequate; Polychromasia Slight; Segmented Neutrophils 95 % (50-85); Total Cells Counted 100
[2020-05-29] MEDS: fentaNYL INJ 2,500 MCG in SODIUM CHLORIDE 0.9% 75 ML IV PRN ×2 (08:30→17:00)
[2020-05-29] MEDS: NON-FORMULARY MEDICATION (Aluminum Hydrox-Magnesium Carb [Gaviscon Extra Strength] 160-105 PO SCH ×2 (08:49→21:21)
[2020-05-29] MEDS: DOCUSATE SODIUM 100 MG/10 ML UDCUP PER TUBE SCH ×2 (10:00→20:24)
[2020-05-29] MEDS: MAGNESIUM CHLORIDE 64 MG TABLET PO SCH (10:00)
[2020-05-29] MEDS: AZITHROMYCIN INJ 500 MG in SODIUM CHLORIDE 0.9% 250 ML IV SCH (10:00)
[2020-05-29] MEDS: BACITRACIN OINT 0.9 GM PACK TOP SCH ×3 (10:00→20:24)
[2020-05-29] MEDS: APIXABAN 5 MG TABLET PO SCH ×2 (10:00→20:24)
[2020-05-29] MEDS: ASPIRIN CHEW 81 MG TABLET PO SCH (10:00)
[2020-05-29] MEDS: IMMUNE GLOBULIN 10% 20 GM, IMMUNE GLOBULIN 10% 10 GM in PREMIX 1 EACH IV SCH (10:00)
[2020-05-29] MEDS: MULTIVITAMIN LIQUID (CENTRUM) 60 ML BOTTLE PER TUBE SCH (10:00)
[2020-05-29] MEDS: NEBIVOLOL 10 MG TABLET PO SCH (10:00)
[2020-05-29] MEDS: PANTOPRAZOLE 40 MG VIAL IV SCH (10:02)
[2020-05-29] MEDS: SODIUM CHLORIDE 0.9% 1,000 ML IV SCH ×2 (10:23→20:23)
[2020-05-29 15:07] LABS: ABG Base Excess -5.2 MMOL/L (-2.5-2.5); ABG HCO3 20.1 MMOL/L (20-26); ABG Oxygen Saturation 93.8 % (95-100); ABG PCO2 59.8 MM HG (35-48); ABG PH 7.212 (7.35-7.45); ABG PO2 77.4 MM HG (80-95); ABG TCO2 21.7 MMOL/L (23-27)
[2020-05-29] MEDS ORDERED: SULFAMETH/TRIMETH INJ 160 MG in DEXTROSE 5% 250 ML IV SCH (16:00)
[2020-05-29] MEDS: GABAPENTIN 100 MG CAPSULE PO SCH (20:24)
[2020-05-29] MEDS: ALPRAZolam 0.25 MG TABLET PO PRN (20:24)
[2020-05-30] MEDS: methylPREDNISolone SOD SUC 40 MG/1 ML VIAL IV SCH ×3 (02:04→18:29)
[2020-05-30] MEDS: ALBUTEROL 2.5 MG/3 ML NEB RESP TX SCH ×6 (02:50→23:24)
[2020-05-30 03:29] LABS: Basophils # 0.1 10*3/uL (0.0-0.2); Basophils % 0.4 % (0.0-0.8); Hematocrit 33.4 VOL% (42.0-52.0); Hemoglobin 10.8 GM/DL (14.0-18.0); Immature Granulocytes % 5.5 %; Lymphocytes # 0.2 10*3/uL (1.4-4.0); Lymphocytes % 0.7 % (21.2-54.2); Mean Corpuscular HGB Conc 32.3 GM/DL (32-36); Mean Corpuscular Volume 102.8 FL (87-102); Mean Platelet Volume 10.1 FL (9.6-12.0); Monocytes % 2.1 % (1.7-12.7); Neutrophils % 91.3 % (38.7-73.9); Platelet Count 228 T/CUMM (130-400); Red Blood Count 3.25 MC/CUMM (3.8-5.5); Red Cell Distribution Width 14.5 % (9.3-17.3); White Blood Count 25.2 T/CUMM (4-12)
[2020-05-30 03:54] LABS: Albumin 1.6 G/DL (3.4-5.0); Bilirubin,Total 0.4 MG/DL (0.2-1.0); Calcium 7.1 MG/DL (8.5-10.1); Osmolality,Calculated 303.8 MOS/KG (273-304); Total Protein 6.6 G/DL (6.4-8.3)
[2020-05-30] MEDS: fentaNYL INJ 2,500 MCG in SODIUM CHLORIDE 0.9% 75 ML IV PRN ×3 (04:15→23:52)
[2020-05-30 04:37] LABS: ABG Base Excess -4.9 MMOL/L (-2.5-2.5); ABG HCO3 23.3 MMOL/L (20-26); ABG Oxygen Saturation 96.4 % (95-100); ABG PCO2 58.4 MM HG (35-48); ABG PH 7.219 (7.35-7.45); ABG TCO2 25.1 MMOL/L (23-27); Allen Test Positive; Pt O2 Delivery Device Ventilator
[2020-05-30] MEDS ORDERED: SODIUM POLYSTYRENE SULFATE 15 GM/60 ML BOTTLE PO ONE (05:17)
[2020-05-30] MEDS: LEVOTHYROXINE 25 MCG TABLET PO SCH (06:15)
[2020-05-30] MEDS: INSULIN REGULAR 100 UNIT/ML SUBCUT SCH ×4 (06:15→18:29)
[2020-05-30] MEDS: SODIUM CHLORIDE 0.9% 1,000 ML IV SCH (07:21)
[2020-05-30] MEDS: PIPERACILLIN/TAZOBACTAM 3,375 MG in SODIUM CHLORIDE 0.9% 100 ML IV SCH (07:22)
[2020-05-30 07:25] LABS: Band Neutrophils 3 % (0-10); Platelet Estimate Normal; Segmented Neutrophils 97 % (50-85); Total Cells Counted 100
[2020-05-30 07:26] LABS: Anisocytosis Slight; Polychromasia Slight
[2020-05-30 07:29] LABS: Macrocytosis Slight
[2020-05-30] MEDS: NON-FORMULARY MEDICATION (Aluminum Hydrox-Magnesium Carb [Gaviscon Extra Strength] 160-105 PO SCH ×2 (09:14→21:34)
[2020-05-30] MEDS: BACITRACIN OINT 0.9 GM PACK TOP SCH ×3 (09:30→20:24)
[2020-05-30] MEDS: AZITHROMYCIN INJ 500 MG in SODIUM CHLORIDE 0.9% 250 ML IV SCH (09:30)
[2020-05-30] MEDS: APIXABAN 5 MG TABLET PO SCH ×2 (09:30→20:23)
[2020-05-30] MEDS: ASPIRIN CHEW 81 MG TABLET PO SCH (09:30)
[2020-05-30] MEDS: NEBIVOLOL 10 MG TABLET PO SCH (09:30)
[2020-05-30] MEDS: MULTIVITAMIN LIQUID (CENTRUM) 60 ML BOTTLE PER TUBE SCH (09:30)
[2020-05-30] MEDS: DOCUSATE SODIUM 100 MG/10 ML UDCUP PER TUBE SCH ×2 (09:30→20:21)
[2020-05-30] MEDS ORDERED: MAGNESIUM CITRATE 300 ML BOTTLE PO ONE (10:09)
[2020-05-30] MEDS: PANTOPRAZOLE 40 MG VIAL IV SCH (10:27)
[2020-05-30] MEDS: MAGNESIUM CHLORIDE 64 MG TABLET PO SCH (10:28)
[2020-05-30] MEDS: CISATRACURIUM 200 MG in SODIUM CHLORIDE 0.9% 180 ML IV PRN ×2 (10:30→23:07)
[2020-05-30] MEDS: POLYETHYLENE GLYCOL POWDER 17 GM PACK PO SCH (10:52)
[2020-05-30] MEDS ORDERED: VANCOMYCIN INJ 1,250 MG in SODIUM CHLORIDE 0.9% 250 ML IV PRN (11:30)
[2020-05-30] MEDS ORDERED: CISATRACURIUM 10 MG/5 ML VIAL IV ONE (11:35)
[2020-05-30 12:14] LABS: ABG Base Excess -6.7 MMOL/L (-2.5-2.5); ABG HCO3 18.9 MMOL/L (20-26); ABG Oxygen Saturation 92.3 % (95-100); ABG PO2 76.1 MM HG (80-95); ABG TCO2 22.8 MMOL/L (23-27)
[2020-05-30 12:16] LABS: ABG PCO2 73.2 MM HG (35-48); ABG PH 7.129 (7.35-7.45)
[2020-05-30] MEDS ORDERED: SODIUM BICARBONATE 50 MEQ/50 ML VIAL IV ONE (12:35)
[2020-05-30] MEDS ORDERED: VANCOMYCIN INJ 1,250 MG in SODIUM CHLORIDE 0.9% 250 ML IV ONE (13:00)
[2020-05-30] MEDS: SODIUM BICARB IV SCH (13:20)
[2020-05-30] MEDS: [UNRECOGNIZED DRUG - OTHER] IV SCH (13:20)
[2020-05-30] MEDS: SODIUM CHLORIDE IV SCH (13:20)
[2020-05-30] MEDS: ALBUMIN 25% 12.5 GM in PREMIX 1 EACH IV SCH ×2 (13:20→20:21)
[2020-05-30 13:39] LABS: Osmolality,Calculated 316.3 MOS/KG (273-304)
[2020-05-30] MEDS ORDERED: SODIUM POLYSTYRENE SULFATE 15 GM/60 ML BOTTLE PO STA (14:23)
[2020-05-30] MEDS: BUDESONIDE 0.5 MG/2 ML NEB RESP TX SCH ×2 (14:41→19:13)
[2020-05-30] MEDS: ARFORMOTEROL 15 MCG/2 ML NEB RESP TX SCH ×2 (14:41→19:13)
[2020-05-30 14:56] LABS: ABG Base Excess -3.6 MMOL/L (-2.5-2.5); ABG HCO3 21.3 MMOL/L (20-26); ABG Oxygen Saturation 90.6 % (95-100); ABG PCO2 68.3 MM HG (35-48); ABG PO2 65.3 MM HG (80-95); ABG TCO2 24.3 MMOL/L (23-27)
[2020-05-30 15:01] LABS: ABG PH 7.191 (7.35-7.45)
[2020-05-30] MEDS: SODIUM BICARBONATE 50 MEQ/50 ML VIAL IV SCH ×2 (15:36→20:24)
[2020-05-30] MEDS ORDERED: METOPROLOL TARTRATE 5 MG/5 ML VIAL IV ONE (16:11)
[2020-05-30] MEDS ORDERED: hydrALAZINE 20 MG/1 ML VIAL IV PRN (16:12)
[2020-05-30] MEDS: ACETAMINOPHEN 325 MG TABLET PO PRN (19:30)
[2020-05-30] MEDS ORDERED: SODIUM POLYSTYRENE SULFATE 15 GM/60 ML BOTTLE PO PRN (20:00)
[2020-05-30] MEDS: GABAPENTIN 100 MG CAPSULE PO SCH (20:24)
[2020-05-30 21:17] LABS: Calcium 7.2 MG/DL (8.5-10.1); Osmolality,Calculated 320.3 MOS/KG (273-304)
[2020-05-31] MEDS: INSULIN REGULAR 100 UNIT/ML SUBCUT SCH ×5 (00:27→23:20)
[2020-05-31] MEDS: methylPREDNISolone SOD SUC 40 MG/1 ML VIAL IV SCH ×3 (02:48→18:01)
[2020-05-31] MEDS: SODIUM BICARBONATE 50 MEQ/50 ML VIAL IV SCH ×2 (02:48→08:55)
[2020-05-31 03:15] LABS: Basophils # 0.1 10*3/uL (0.0-0.2); Basophils % 0.3 % (0.0-0.8); Hematocrit 31.8 VOL% (42.0-52.0); Hemoglobin 10.3 GM/DL (14.0-18.0); Immature Granulocytes % 5.9 %; Immature Granulocytes Absolute 1.34 #; Lymphocytes # 0.2 10*3/uL (1.4-4.0); Lymphocytes % 0.7 % (21.2-54.2); Mean Corpuscular HGB Conc 32.4 GM/DL (32-36); Mean Corpuscular Volume 103.6 FL (87-102); Mean Platelet Volume 10.1 FL (9.6-12.0); Neutrophils % 90.1 % (38.7-73.9); Platelet Count 219 T/CUMM (130-400); Red Blood Count 3.07 MC/CUMM (3.8-5.5); Red Cell Distribution Width 14.6 % (9.3-17.3); White Blood Count 22.5 T/CUMM (4-12)
[2020-05-31 03:27] LABS: Calcium 7.1 MG/DL (8.5-10.1)
[2020-05-31] MEDS: ALBUTEROL 2.5 MG/3 ML NEB RESP TX SCH ×2 (03:37→07:58)
[2020-05-31 04:33] LABS: ABG Base Excess 1.3 MMOL/L (-2.5-2.5); ABG HCO3 28.6 MMOL/L (20-26); ABG Oxygen Saturation 91.7 % (95-100); ABG PCO2 59.5 MM HG (35-48); ABG PH 7.299 (7.35-7.45); ABG PO2 63.6 MM HG (80-95); ABG TCO2 30.4 MMOL/L (23-27); Allen Test Positive; Pt O2 Delivery Device Ventilator
[2020-05-31 05:30] LABS: Band Neutrophils 2 % (0-10); Lymphocytes 3 % (20-55); Segmented Neutrophils 95 % (50-85); Total Cells Counted 100
[2020-05-31 05:33] LABS: Hypochromasia Slight
[2020-05-31 05:34] LABS: Platelet Estimate Adequate
[2020-05-31] MEDS: ALBUMIN 25% 12.5 GM in PREMIX 1 EACH IV SCH ×3 (06:30→22:05)
[2020-05-31] MEDS: LEVOTHYROXINE 25 MCG TABLET PO SCH (06:30)
[2020-05-31] MEDS: BUDESONIDE 0.5 MG/2 ML NEB RESP TX SCH ×2 (07:58→20:04)
[2020-05-31] MEDS: ARFORMOTEROL 15 MCG/2 ML NEB RESP TX SCH ×2 (07:58→20:04)
[2020-05-31] MEDS: NON-FORMULARY MEDICATION (Aluminum Hydrox-Magnesium Carb [Gaviscon Extra Strength] 160-105 PO SCH ×2 (08:31→21:53)
[2020-05-31] MEDS: MAGNESIUM CHLORIDE 64 MG TABLET PO SCH (08:43)
[2020-05-31] MEDS: NEBIVOLOL 10 MG TABLET PO SCH (08:54)
[2020-05-31] MEDS: DOCUSATE SODIUM 100 MG/10 ML UDCUP PER TUBE SCH ×2 (08:54→22:05)
[2020-05-31] MEDS: MULTIVITAMIN LIQUID (CENTRUM) 60 ML BOTTLE PER TUBE SCH (08:54)
[2020-05-31] MEDS: BACITRACIN OINT 0.9 GM PACK TOP SCH ×3 (08:54→22:05)
[2020-05-31] MEDS: ASPIRIN CHEW 81 MG TABLET PO SCH (08:54)
[2020-05-31] MEDS: AZITHROMYCIN INJ 500 MG in SODIUM CHLORIDE 0.9% 250 ML IV SCH (08:55)
[2020-05-31] MEDS: APIXABAN 5 MG TABLET PO SCH ×2 (08:55→22:05)
[2020-05-31] MEDS: PANTOPRAZOLE 40 MG VIAL IV SCH (08:55)
[2020-05-31] MEDS: POLYETHYLENE GLYCOL POWDER 17 GM PACK PO SCH (08:55)
[2020-05-31] MEDS: SODIUM BICARB IV SCH (09:34)
[2020-05-31] MEDS: SODIUM CHLORIDE IV SCH (09:34)
[2020-05-31] MEDS: [UNRECOGNIZED DRUG - OTHER] IV SCH (09:34)
[2020-05-31 10:12] LABS: ABG Base Excess 2.1 MMOL/L (-2.5-2.5); ABG HCO3 26.2 MMOL/L (20-26); ABG PH 7.301 (7.35-7.45); ABG PO2 76.4 MM HG (80-95); ABG TCO2 27.2 MMOL/L (23-27); Allen Test Positive; Pt O2 Delivery Device Ventilator
[2020-05-31] MEDS: CISATRACURIUM 200 MG in SODIUM CHLORIDE 0.9% 180 ML IV PRN (10:50)
[2020-05-31] MEDS: fentaNYL INJ 2,500 MCG in SODIUM CHLORIDE 0.9% 75 ML IV PRN ×2 (11:30→21:01)
[2020-05-31] MEDS: ALBUTEROL/IPRATROPIUM 3 ML NEB RESP TX SCH ×3 (12:00→20:04)
[2020-05-31] MEDS: SODIUM CHLORIDE 23.4% CONC INJ 38.5 MEQ, SODIUM BICARB INJ 50 MEQ in STERILE WATER INJ ... IV SCH (13:25)
[2020-05-31] MEDS ORDERED: VANCOMYCIN INJ 1,250 MG in SODIUM CHLORIDE 0.9% 250 ML IV ONE (15:00)
[2020-05-31] MEDS: ACETAMINOPHEN 325 MG TABLET PO PRN (16:33)
[2020-05-31 21:37] LABS: ABG Base Excess 2.3 MMOL/L (-2.5-2.5); ABG HCO3 26.4 MMOL/L (20-26); ABG Oxygen Saturation 91.9 % (95-100); ABG PH 7.238 (7.35-7.45); ABG PO2 72.9 MM HG (80-95); ABG TCO2 29.6 MMOL/L (23-27)
[2020-05-31] MEDS: GABAPENTIN 100 MG CAPSULE PO SCH (22:05)
[2020-05-31 23:55] LABS: ABG Base Excess 0.9 MMOL/L (-2.5-2.5); ABG Oxygen Saturation 85.2 % (95-100); ABG PH 7.227 (7.35-7.45); ABG PO2 57.6 MM HG (80-95); ABG TCO2 28.4 MMOL/L (23-27)
[2020-06-01 00:05] LABS: ABG PCO2 74.1 MM HG (35-48)
[2020-06-01] MEDS: CISATRACURIUM 200 MG in SODIUM CHLORIDE 0.9% 180 ML IV PRN (00:32)
[2020-06-01] MEDS: ALBUTEROL/IPRATROPIUM 3 ML NEB RESP TX SCH ×7 (00:45→22:48)
[2020-06-01] MEDS: methylPREDNISolone SOD SUC 40 MG/1 ML VIAL IV SCH ×3 (02:39→18:25)
[2020-06-01 04:00] LABS: ABG Base Excess 1.9 MMOL/L (-2.5-2.5); ABG HCO3 25.8 MMOL/L (20-26); ABG Oxygen Saturation 83.1 % (95-100); ABG PH 7.259 (7.35-7.45); ABG TCO2 28.3 MMOL/L (23-27); Allen Test Positive; Pt O2 Delivery Device Ventilator
[2020-06-01 04:29] LABS: ABG PCO2 70.4 MM HG (35-48)
[2020-06-01] MEDS: fentaNYL INJ 2,500 MCG in SODIUM CHLORIDE 0.9% 75 ML IV PRN ×3 (04:30→22:33)
[2020-06-01 05:15] LABS: Basophils # 0.1 10*3/uL (0.0-0.2); Basophils % 0.3 % (0.0-0.8); Hematocrit 33.6 VOL% (42.0-52.0); Hemoglobin 10.7 GM/DL (14.0-18.0); Immature Granulocytes % 4.5 %; Immature Granulocytes Absolute 1.41 #; Lymphocytes # 0.2 10*3/uL (1.4-4.0); Lymphocytes % 0.6 % (21.2-54.2); Mean Corpuscular HGB Conc 31.8 GM/DL (32-36); Mean Corpuscular Volume 104.7 FL (87-102); Mean Platelet Volume 10.6 FL (9.6-12.0); Monocytes % 2.2 % (1.7-12.7); Neutrophils % 92.4 % (38.7-73.9); Platelet Count 232 T/CUMM (130-400); Red Blood Count 3.21 MC/CUMM (3.8-5.5); Red Cell Distribution Width 14.6 % (9.3-17.3); White Blood Count 31.2 T/CUMM (4-12)
[2020-06-01 05:20] LABS: Calcium 7.3 MG/DL (8.5-10.1); Osmolality,Calculated 333.6 MOS/KG (273-304)
[2020-06-01 05:46] LABS: Lymphocytes 1 % (20-55); Nucleated Red Blood Cells 1 (0-5); Segmented Neutrophils 97 % (50-85); Total Cells Counted 100
[2020-06-01 05:47] LABS: Hypochromasia Slight; Macrocytosis Slight; Platelet Estimate Normal
[2020-06-01] MEDS: INSULIN REGULAR 100 UNIT/ML SUBCUT SCH ×3 (05:56→17:31)
[2020-06-01] MEDS: LEVOTHYROXINE 25 MCG TABLET PO SCH (06:10)
[2020-06-01] MEDS: ALBUMIN 25% 12.5 GM in PREMIX 1 EACH IV SCH ×3 (06:16→20:53)
[2020-06-01] MEDS: BUDESONIDE 0.5 MG/2 ML NEB RESP TX SCH ×2 (08:06→19:31)
[2020-06-01] MEDS: ARFORMOTEROL 15 MCG/2 ML NEB RESP TX SCH ×2 (08:06→19:31)
[2020-06-01 08:11] LABS: Allen Test Positive; Pt O2 Delivery Device Ventilator
[2020-06-01 08:12] LABS: ABG Base Excess 2.8 MMOL/L (-2.5-2.5); ABG Oxygen Saturation 88.9 % (95-100); ABG PH 7.226 (7.35-7.45); ABG PO2 64.9 MM HG (80-95); ABG TCO2 34.5 MMOL/L (23-27)
[2020-06-01] MEDS: MULTIVITAMIN LIQUID (CENTRUM) 60 ML BOTTLE PER TUBE SCH (09:36)
[2020-06-01] MEDS: PANTOPRAZOLE 40 MG VIAL IV SCH (09:36)
[2020-06-01] MEDS: AZITHROMYCIN INJ 500 MG in SODIUM CHLORIDE 0.9% 250 ML IV SCH (09:37)
[2020-06-01] MEDS: ASPIRIN CHEW 81 MG TABLET PO SCH (09:42)
[2020-06-01] MEDS: POLYETHYLENE GLYCOL POWDER 17 GM PACK PO SCH (09:42)
[2020-06-01] MEDS: NEBIVOLOL 10 MG TABLET PO SCH (09:42)
[2020-06-01] MEDS: APIXABAN 5 MG TABLET PO SCH (09:43)
[2020-06-01] MEDS: NON-FORMULARY MEDICATION (Aluminum Hydrox-Magnesium Carb [Gaviscon Extra Strength] 160-105 PO SCH ×2 (09:44→20:54)
[2020-06-01] MEDS: BACITRACIN OINT 0.9 GM PACK TOP SCH ×3 (09:44→20:45)
[2020-06-01] MEDS: DOCUSATE SODIUM 100 MG/10 ML UDCUP PER TUBE SCH ×2 (09:44→20:45)
[2020-06-01] MEDS: SODIUM CHLORIDE 23.4% CONC INJ 38.5 MEQ, SODIUM BICARB INJ 50 MEQ in STERILE WATER INJ ... IV SCH (09:57)
[2020-06-01] MEDS: MEROPENEM 500 MG in SODIUM CHLORIDE 0.9% 100 ML IV SCH ×2 (09:59→17:31)
[2020-06-01] MEDS: SODIUM BICARB INJ 50 MEQ in DEXTROSE 5% NACL 0.45% 1,000 ML IV SCH (17:30)
[2020-06-01] MEDS: GABAPENTIN 100 MG CAPSULE PO SCH (20:54)
[2020-06-01] MEDS ORDERED: APIXABAN 5 MG TABLET PO SCH (21:00)
[2020-06-01] MEDS ORDERED: SODIUM CHLORIDE 0.9% 1,000 ML IV ONE (21:02)
[2020-06-02] MEDS: INSULIN REGULAR 100 UNIT/ML SUBCUT SCH ×4 (00:41→18:36)
[2020-06-02] MEDS: PHENYLEPHRINE DRIP 40 MG/250 ML PREMIX IV PRN ×4 (00:43→11:06)
[2020-06-02] MEDS: MEROPENEM 500 MG in SODIUM CHLORIDE 0.9% 100 ML IV SCH ×3 (02:15→18:33)
[2020-06-02] MEDS: methylPREDNISolone SOD SUC 40 MG/1 ML VIAL IV SCH ×3 (02:15→18:34)
[2020-06-02 03:27] LABS: ABG Base Excess -0.4 MMOL/L (-2.5-2.5); ABG HCO3 27.5 MMOL/L (20-26); ABG Oxygen Saturation 88.4 % (95-100); ABG PCO2 65.9 MM HG (35-48); ABG PH 7.238 (7.35-7.45); ABG PO2 62.2 MM HG (80-95); ABG TCO2 29.5 MMOL/L (23-27); Allen Test Positive; Pt O2 Delivery Device Ventilator
[2020-06-02] MEDS: ALBUTEROL/IPRATROPIUM 3 ML NEB RESP TX SCH ×3 (04:30→18:33)
[2020-06-02] MEDS: fentaNYL INJ 2,500 MCG in SODIUM CHLORIDE 0.9% 75 ML IV PRN ×3 (04:41→16:11)
[2020-06-02] MEDS: CISATRACURIUM 200 MG in SODIUM CHLORIDE 0.9% 180 ML IV PRN (04:55)
[2020-06-02] MEDS: ALBUMIN 25% 12.5 GM in PREMIX 1 EACH IV SCH (04:55)
[2020-06-02 04:58] LABS: Basophils # 0.1 10*3/uL (0.0-0.2); Basophils % 0.1 % (0.0-0.8); Hematocrit 24.5 VOL% (42.0-52.0); Immature Granulocytes Absolute 1.73 #; Lymphocytes # 0.2 10*3/uL (1.4-4.0); Lymphocytes % 0.7 % (21.2-54.2); Mean Corpuscular HGB Conc 32.2 GM/DL (32-36); Mean Corpuscular Volume 104.7 FL (87-102); Monocytes % 1.5 % (1.7-12.7); NRBC # 0.08 10*3/uL; Neutrophils % 92.7 % (38.7-73.9); Platelet Count 230 T/CUMM (130-400); Red Cell Distribution Width 15.2 % (9.3-17.3); White Blood Count 34.5 T/CUMM (4-12)
[2020-06-02 05:07] LABS: Hemoglobin 7.9 GM/DL (14.0-18.0); Red Blood Count 2.34 MC/CUMM (3.8-5.5)
[2020-06-02 05:14] LABS: Calcium 6.8 MG/DL (8.5-10.1); Osmolality,Calculated 336.1 MOS/KG (273-304)
[2020-06-02 05:20] LABS: Albumin 2.3 G/DL (3.4-5.0); Bilirubin,Direct 0.43 MG/DL (0.0-0.20); Bilirubin,Indirect 0.4 MG/DL (0.0-1.0); Bilirubin,Total 0.8 MG/DL (0.2-1.0); Total Protein 5.1 G/DL (6.4-8.3)
[2020-06-02 05:24] LABS: Albumin 2.3 G/DL (3.4-5.0); Bilirubin,Total 1.1 MG/DL (0.2-1.0); Calcium 6.6 MG/DL (8.5-10.1); Total Protein 4.6 G/DL (6.4-8.3)
[2020-06-02 05:26] LABS: Lymphocytes 1 % (20-55); Nucleated Red Blood Cells 1 (0-5); Platelet Estimate Adequate; Segmented Neutrophils 98 % (50-85); Total Cells Counted 100
[2020-06-02 05:27] LABS: Hypochromasia 1+
[2020-06-02] MEDS: LEVOTHYROXINE 25 MCG TABLET PO SCH (06:45)
[2020-06-02] MEDS: ARFORMOTEROL 15 MCG/2 ML NEB RESP TX SCH (06:58)
[2020-06-02] MEDS: BUDESONIDE 0.5 MG/2 ML NEB RESP TX SCH (06:58)
[2020-06-02] MEDS ORDERED: FUROSEMIDE 40 MG/4 ML VIAL IV ONE (07:07)
[2020-06-02] MEDS ORDERED: APIXABAN 2.5 MG TABLET PO SCH (08:38)
[2020-06-02] MEDS ORDERED: LEVOFLOXACIN INJ 750 MG in PREMIX 1 EACH IV SCH (09:00)
[2020-06-02] MEDS: PANTOPRAZOLE 40 MG VIAL IV SCH ×2 (10:27→21:28)
[2020-06-02] MEDS: AZITHROMYCIN INJ 500 MG in SODIUM CHLORIDE 0.9% 250 ML IV SCH (10:27)
[2020-06-02] MEDS: ASPIRIN CHEW 81 MG TABLET PO SCH (10:29)
[2020-06-02] MEDS: MULTIVITAMIN LIQUID (CENTRUM) 60 ML BOTTLE PER TUBE SCH (10:29)
[2020-06-02] MEDS: DOCUSATE SODIUM 100 MG/10 ML UDCUP PER TUBE SCH ×2 (10:29→21:28)
[2020-06-02] MEDS: NEBIVOLOL 10 MG TABLET PO SCH (10:29)
[2020-06-02] MEDS: BACITRACIN OINT 0.9 GM PACK TOP SCH ×3 (10:29→21:28)
[2020-06-02] MEDS: POLYETHYLENE GLYCOL POWDER 17 GM PACK PO SCH (10:29)
[2020-06-02 10:47] VITALS: BP 110/58
[2020-06-02 12:44] LABS: Hepatitis B Core IgM Quant 0.13 Index; Hepatitis B Surface Ag Quant 0.56 Index; Hepatitis B Surface Ag Result Negative (Negative); Hepatitis C Virus Ab Quant < 0.02 Index; Hepatitis C Virus Ab Result Negative (Negative)
[2020-06-02] MEDS: SODIUM BICARB INJ 50 MEQ in DEXTROSE 5% NACL 0.45% 1,000 ML IV SCH (18:30)
[2020-06-02] MEDS: GABAPENTIN 100 MG CAPSULE PO SCH (21:28)
[2020-06-03] MEDS ORDERED: EPINEPHrine 1 MG/ML VIAL ONE (00:09)
[2020-06-03] MEDS: PHENYLEPHRINE DRIP 40 MG/250 ML PREMIX IV PRN ×2 (00:42→04:02)
[2020-06-03 02:04] LABS: Basophils # 0.1 10*3/uL (0.0-0.2); Basophils % 0.2 % (0.0-0.8); Hematocrit 29.8 VOL% (42.0-52.0); Immature Granulocytes % 5.4 %; Immature Granulocytes Absolute 1.76 #; Lymphocytes # 0.5 10*3/uL (1.4-4.0); Lymphocytes % 1.4 % (21.2-54.2); Mean Corpuscular HGB Conc 30.2 GM/DL (32-36); Mean Corpuscular Volume 107.2 FL (87-102); Mean Platelet Volume 10.9 FL (9.6-12.0); Monocytes % 1.8 % (1.7-12.7); NRBC # 0.42 10*3/uL; Neutrophils % 91.2 % (38.7-73.9); Platelet Count 164 T/CUMM (130-400); Red Blood Count 2.78 MC/CUMM (3.8-5.5); Red Cell Distribution Width 16.5 % (9.3-17.3); White Blood Count 32.6 T/CUMM (4-12)
[2020-06-03 02:25] LABS: Calcium 6.5 MG/DL (8.5-10.1); Osmolality,Calculated 316.7 MOS/KG (273-304)
[2020-06-03] MEDS: MEROPENEM 500 MG in SODIUM CHLORIDE 0.9% 100 ML IV SCH (02:30)
[2020-06-03] MEDS: methylPREDNISolone SOD SUC 40 MG/1 ML VIAL IV SCH (02:31)
[2020-06-03 02:42] LABS: Troponin I 1.05 NG/ML (0.00-0.045)
[2020-06-03] MEDS ORDERED: SODIUM POLYSTYRENE SULFATE 15 GM/60 ML BOTTLE PO ONE (02:54)
[2020-06-03 03:17] LABS: Anisocytosis 2+; Band Neutrophils 5 % (0-10); Giant Platelets Few; Lymphocytes 2 % (20-55); Macrocytosis 2+; Metamyelocytes 2 %; Nucleated Red Blood Cells 2 (0-5); Platelet Estimate Normal; Polychromasia Few; Segmented Neutrophils 89 % (50-85); Total Cells Counted 100
[2020-06-03 03:25] LABS: ABG Base Excess -17.4 MMOL/L (-2.5-2.5); ABG HCO3 11.2 MMOL/L (20-26); ABG Oxygen Saturation 92.1 % (95-100); ABG PCO2 44.6 MM HG (35-48); ABG PO2 85.6 MM HG (80-95); ABG TCO2 12.2 MMOL/L (23-27)
[2020-06-03 03:38] LABS: ABG PH 7.054 (7.35-7.45)
[2020-06-03] MEDS ORDERED: SODIUM BICARBONATE 50 MEQ/50 ML VIAL IV ONE ×3 (03:42→09:33)
[2020-06-03] MEDS: CISATRACURIUM 200 MG in SODIUM CHLORIDE 0.9% 180 ML IV PRN (03:57)
[2020-06-03] MEDS: LEVOTHYROXINE 25 MCG TABLET PO SCH (06:25)
[2020-06-03] MEDS: fentaNYL INJ 2,500 MCG in SODIUM CHLORIDE 0.9% 75 ML IV PRN (06:47)
[2020-06-03] MEDS ORDERED: PHENYLEPHRINE INJ 80 MG in SODIUM CHLORIDE 0.9% 242 ML IV PRN (07:00)
[2020-06-03] MEDS ORDERED: AMIODARONE 150 MG/3 ML VIAL ONE (07:21)
[2020-06-03] MEDS ORDERED: AMIODARONE 450 MG/9 ML VIAL IV ONE (07:22)
[2020-06-03] MEDS ORDERED: INSULIN REGULAR 100 UNIT/ML ONE (07:28)
[2020-06-03] MEDS ORDERED: AMIODARONE INJ 150 MG in DEXTROSE 5% 100 ML IV ONE (07:29)
[2020-06-03] MEDS ORDERED: AMIODARONE INJ 450 MG in DEXTROSE 5% 241 ML IV SCH (07:30)
[2020-06-03] MEDS ORDERED: DEXTROSE 10% 1,000 ML IV SCH (07:31)
[2020-06-03] MEDS ORDERED: CALCIUM GLUCONATE 1,000 MG/10 ML VIAL IV ONE (07:35)
[2020-06-03] MEDS ORDERED: CALCIUM GLUCONATE 1,000 MG in SODIUM CHLORIDE 0.9% 100 ML IV ONE (07:37)
[2020-06-03] MEDS ORDERED: DEXTROSE 50% 25 GM/50 ML VIAL IV ONE (09:33)
[2020-06-03] MEDS ORDERED: INSULIN REGULAR 100 UNIT/ML IV ONE (09:33)
== END 2020-06-03 07:47 | disposition expired | DRG 207 ==
LOC: EDBD → EDUNIT# → N.ED 13:16 → N.EDINP 14:34 → SUATTDRO 14:34 → N.TELEN 15:22 → N.ICU 05-25 01:42
PROVIDERS: ADMIT Internal Medicine; ATTEND Internal Medicine